=== PATIENT | male | born 1960 | race Caucasian/White ===

== ENCOUNTER 2018-04-04 13:28 | Day surgery (SDC) | payer OTHER ==
[2018-04-02 11:38] VITALS: BMI 27.7
--- NOTE | 2018-04-04 08:13 | HP ---
History & Physical Update - History History: No Change - Physical Physical: No Change - Assessment Assessment: No Change - Plan Plan: No Change (Initial H&P is located in his paper chart. Complete and accurate. No new complaints or medications. Neck pain radiating down RUE to hand )
--- NOTE | 2018-04-04 10:26 | OP ---
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
--- NOTE | 2018-04-04 10:38 | SURG ---
Surgery Cylinder Machine Operator Pulp Drier Note Cylinder Machine Operator Pulp Drier: Haris Tamez PA-C Date of Service: 04/04/18 Diagnosis: Cervical C4/5 stenosis with radiculopathy Procedure: Anterior Cervical Discectomy Fusion C4/5, allograft implant, neuromonitoring I was present for the entirety of the operative procedure. For further detail, please refer to operative report. Visit type - Case Type Case Type: Scheduled - New patient This patient is new to me today: Yes Date on this admission: 04/04/18
--- NOTE | 2018-04-04 10:40 | OP ---
DATE OF OPERATION: 04/04/2018 PREOPERATIVE DIAGNOSIS: Cervical stenosis C4-C5. POSTOPERATIVE DIAGNOSIS: Cervical stenosis C4-C5. PROCEDURE PERFORMED: 1. Anterior cervical diskectomy and fusion C4-C5. 2. Placement of instrumentation C4-C5. 3. Placement of prosthetic cage. SURGEON: Mazin Riojas MD FURNACE CHARGER: JENSEN Gomez ESTIMATED BLOOD LOSS: 50 mL. IV FLUIDS: Per anesthesia. ANESTHESIA: General, superficial cervical block. COMPLICATIONS: None. DISPOSITION: The patient was brought to the PACU in stable condition. INDICATION FOR SURGERY: The patient is a 57-year-old gentleman who has been suffering from pain from his neck down his arms. X-rays and CT scan were completed, which noted that he had C4-C5 herniated disk. He had gone through an exhaustive course of treatment for this, which included medications, physical therapy as well as injections, and unfortunately, his pain continued to persist despite all of this. At this point, risks, benefits, and alternatives were discussed, and the patient consented to surgery. DESCRIPTION OF PROCEDURE: The patient was brought to the operating room by the anesthesia staff. After appropriate patient identification was performed, general anesthesia was administered. A superficial cervical block was administered. The patient was placed supine on the OR bed with his arms tucks in at the side. All areas of bony prominences were well padded at this time. A shoulder roll was placed underneath his shoulder to the point that he could tolerate it in the preoperative holding area. Neuromonitoring leads were attached. A needle was taped onto his neck to isaias off the C4-C5 disk. An x-ray was taken to confirm this was correct. The needle was removed, and 10 mL of lidocaine with epinephrine was injected into his neck at this time. His neck was prepped and draped in a sterile fashion. At this point, a time-out was completed. A 2-inch incision was made on the left side of his neck. Dissection was carried down to the platysma. The platysma was cut in line with the skin incision. Next, the interval between the sternocleidomastoid and strap muscles was developed. Next, the interval between the carotid sheath and trachea and esophagus was developed. A needle was placed into the C4-C5 disk. An x-ray was taken to confirm this was correct. Needle was removed, and the longus colli muscles were elevated off. Retractor blades were placed in. A Sassafras pin was placed into the body in C4-C5 disk. A knife was used to incise the disk, and distraction was applied. At this point, the microscope was brought in. The Antonio was used to elevate the disk off the endplate. Using a series of pituitaries, Kerrisons, and curettes, a diskectomy was completed. The endplates were decorticated at this time. Cage filled with bone graft were placed in. A screw was placed into the body of C4. A screw was placed into the body of C5. Sassafras pins were removed. AP and lateral x-rays confirmed the instrumentation to be in good position. Final tightening was performed. The platysma was closed with 2-0 Vicryl suture, the skin was closed with 3-0 Monocryl suture. Dermabond was applied. Steri-Strips were applied. A sterile dressing was applied. The patient was placed supine on the OR bed, extubated in the OR, and brought to the PACU in stable condition. Roman [id number]
[~2018-04-04 13:28] MED LIST: BUPIVACAINE HCL/PF (5 MG/ML) 30 ML VIAL IJ ONE; CEFAZOLIN 2 GM in DEXTROSE 5%-WATER - 100 ML IVPB ONE; DESFLURANE GAS 240 ML BOTTLE IH ONE; DEXAMETHASONE SOD PHOSPHATE 4 MG/1 ML VIAL ONE; DEXAMETHASONE SOD PHOSPHATE/PF 10 MG/ML SDV ONE; GUM MASTIC/STORAX/MSAL/ALCOHOL 1 DRP DROPSBTL MC ONE; HYDROmorphone HCL/PF 1 MG/ML AMP ONE; LACTATED RINGERS SOLUTION 1,000 ML IV SCH; LIDOCAINE 1%/EPI 1:100000 (20 ML MULTI DOSE VIAL) ONE; LIDOCAINE HCL/PF 2% SDV 5ML VIAL ONE; MIDAZOLAM HCL 2 MG/2 ML SINGLE DOSE VIAL ONE; ONDANSETRON 4 MG/2 ML VIAL IVPUSH PRN; ONDANSETRON 4 MG/2 ML VIAL ONE; PROPOFOL 20 ML ONE; SUCCINYLCHOLINE CHLORIDE 200 MG/10 ML VIAL ONE; THROMBIN (BOVINE) 5,000 UNIT VIAL TP ONE; ceFAZolin SODIUM 1 GM VIAL ONE; oxyCODONE HCL 10 MG SUSTAINED ACTING TABLET PO STA; oxyCODONE HCL 5 MG TABLET PO PRN
[2018-04-04] MEDS ORDERED: DEXAMETHASONE SOD PHOSPHATE 4 MG/1 ML VIAL ONE (14:42)
[2018-04-04] MEDS ORDERED: DEXAMETHASONE SOD PHOSPHATE 4 MG/1 ML VIAL IVPUSH ONE (15:00)
[2018-04-04 15:27] VITALS: TEMP 98.2
[2018-04-04] MEDS ORDERED: CEFAZOLIN 1 GM/D5W 1 GM/50 ML BAG ONE (15:31)
[2018-04-04] MEDS ORDERED: CEFAZOLIN 1 GM/D5W 1 GRAM/50 ML BAG IVPB SCH (16:00)
[2018-04-04 16:47] VITALS: BP 120/77; PULSE 74
[2018-04-05] MEDS ORDERED: AMIODARONE HCL 200 MG TABLET (FP) PO SCH (10:00)
[2018-04-05] MEDS ORDERED: FOLIC ACID 1 MG TABLET (FP) PO SCH (10:00)
[2018-04-05] MEDS ORDERED: PATIENT'S OWN MEDICATION (NON-FORMULARY) (Fluticasone/Salmeterol [Advair Hfa 115-21 Mcg In IH SCH (10:00)
--- NOTE | 2018-04-12 15:18 | PATH ---
Surgical Pathology Report Patient Name: LUKE RIBEIRO [facility]. Rec. #: [id number] /Age/Gender: 1960 (Age: 57) / M Account: [id number] [facility] Taken: 04/04/2018 Received: 04/04/2018 Reported: 04/12/2018 Physicians: Mazin Riojas M.D. Specimen(s) Received C4-5 DISC Clinical History Cervical stenosis Final Diagnosis C4-5 DISC, EXCISION: CARTILAGE WITH DEGENERATIVE CHANGES. Electronically Signed Rachel Rain M.D. Gross Description Received in formalin labeled "C4-5 disc," is a 2.8 x 2.2 x 0.3 cm aggregate of forrester fragments of fibrocartilaginous tissue. The specimen is entirely submitted in one cassette. /04/05/201804/05/2018
== END 2018-04-04 16:30 | disposition home or self-care (01) ==
LOC: FM/S 13:28 → FASU 13:28
PROVIDERS: ATTEND Orthopaedic Surgery Orthopaedic Surgery of the Spine
PROC: 0RG10A0 Fusion of Cervical Vertebral Joint with Interbody Fusion Device, Anterior Approach, Anterior Column, Open Approach (ICD-10-PCS; 2018-04-04)
PROC: 0RG10K0 Fusion of Cervical Vertebral Joint with Nonautologous Tissue Substitute, Anterior Approach, Anterior Column, Open Approach (ICD-10-PCS; 2018-04-04)
PROC: 0RB30ZZ Excision of Cervical Vertebral Disc, Open Approach (ICD-10-PCS; principal; 2018-04-04 09:22)
DX: M48.02 Spinal stenosis, cervical region (principal)
CPT/HCPCS: 22551; 22845; 22853; C1889; 72050-TC-FY; 88304-TC